=== PATIENT | female | born 1955 | race Caucasian/White ===

== ENCOUNTER 2017-02-27 16:44 | Emergency (ER) | payer MEDICARE ==
--- NOTE | ~2017-02-27 | CR151 ---
[facility] A Service of [facility] & [facility] RADIOLOGY TEXT RESULTS PATIENT: ANTONI BLACK LOCATION: [facility] : 51 UNIT #: [id number] AGE: [address]: Yao Verdin MD SEX: F ORDER DR: [id number] [facility] [address] [place], [place] [address] [id number] E MR#: [id number] Acc #: [id number] NAME: ANTONI BLACK : 1955 SEX: F STUDY DATE/TIME: 02/27/2017 18:34 UNIT: [facility] ROOM: STUDY DESCRIPTION: CR Hip Min 2 Views Rt Attending Physician: Yao Verdin M.D. Ordering Physician: Jeremy Hyde D.O. Primary Care Physician: Dontae Yoder M.D. MEDICAL IMAGING REPORT This report is preliminary unless electronic signature is present EXAM Right hip, 02/27/2017 HISTORY 61-year-old female with right hip pain beginning this morning. No specific injury. COMPARISON None. FINDINGS 2 views of the right hip demonstrate no acute fracture or dislocation. Bony pelvis intact. Sacrum and SI joints intact. Joint spaces are grossly maintained in both hips. Soft tissues are unremarkable. IMPRESSION Unremarkable right hip. Dictated by... Terry Clancy M.D. THIS IS AN ELECTRONICALLY VERIFIED REPORT Terry Clancy M.D. at 02/28/2017 9:06 AM YI/kay TD: 02/27/2017 23:06 JOB #: [id number] MEDICAL IMAGING REPORT Page 1 of 1 COPY
[2017-02-27 18:23] LABS: URINE SOURCE CLEAN CATCH
[2017-02-27 18:28] LABS: URINE APPEARANCE CLEAR; URINE BILIRUBIN NEG (NEG); URINE BLOOD 2+ (NEG); URINE COLOR YELLOW; URINE GLUCOSE NEG (NEG); URINE KETONE NEG (NEG); URINE LEUKOCYTE ESTERASE NEG (NEG); URINE NITRATE NEG (NEG); URINE PH 5.5 (5-8); URINE PROTEIN NEG (NEG); URINE SPECIFIC GRAVITY 1.012 (1.003-1.035); URINE UROBILINOGEN 0.2 MG/DL (NEG)
[2017-02-27 18:30] LABS: URINE BACTERIA AUWI NEG (NEGATIVE); URINE SQUAMOUS EPITHELIAL CELL NONE SEEN /[HPF]; UWBCS1 AUWI 0-2 (0-5)
[2017-02-27 18:39] LABS: CULTURE INDICATED? NO
[2017-02-27 18:42] LABS: AMPHETAMINE NEG (NEG); BARBITURATES NEG (NEG); BENZODIAZEPINES NEG (NEG); COCAINE NEG (NEG); MARIJUANA NEG (NEG); OPIATES NEG (NEG); TRICYCLIC ANTIDEPRESSANTS NEG (NEG); U METHADONE NEG (NEG)
[2017-02-27 18:49] LABS: BASOPHIL# 0.1 X10e3 (0-0.3); BASOPHIL% 0.8 % (0-2.5); EOSINOPHIL# 0.2 X10e3 (0-0.7); EOSINOPHIL% 2.8 % (0.0-7.0); HEMATOCRIT 36.3 % (35.0-45.0); HEMOGLOBIN 12.2 gm/dL (12.0-16.0); LYMPHOCYTE# 2.4 X10e3 (1.0-3.5); LYMPHOCYTE% 37.6 % (17.0-45.0); MEAN CELL VOLUME 104.5 FL (83-96); MEAN CORPUSCULAR HEMOGLOBIN 34.9 PG (28-34); MEAN CORPUSCULAR HGB CONC 33.5 g/dL (30-36); MEAN PLATELET VOLUME 6.6 FL (6.5-11.5); MONOCYTE# 0.5 X10e3 (0-1.0); MONOCYTE% 8.4 % (3.0-12.0); NEUTROPHIL# 3.2 X10e3 (1.5-7.1); NEUTROPHIL% 50.4 % (40-75); PLATELET COUNT 272 X10e3 (140-420); RED BLOOD COUNT 3.48 X10e (3.90-5.30); RED CELL DISTRIBUTION WIDTH 13.2 % (11.0-15.5); WHITE BLOOD COUNT 6.3 X10e3 (4.0-10.5)
[2017-02-27 18:54] LABS: DIFF IND NO
[2017-02-27 19:13] LABS: ALBUMIN SERUM 4.1 g/dL (3.5-5.0); BILIRUBIN,TOTAL 0.4 mg/dL (0.2-2.0); BUN/CREATININE RATIO 12.5; CALCIUM SERUM 8.9 mg/dL (8.4-10.2); CREATININE SERUM 0.8 mg/dL (0.6-1.4); GLOM FILT RATE Estimated 78.5 mL/min (>60); POTASSIUM 3.7 mmol/L (3.5-5.1); PROTEIN TOTAL SERUM 6.6 g/dL (6.0-8.3)
[2017-02-27 19:16] LABS: POC - TROPONIN <0.05 ng/mL (<=0.05)
== END 2017-02-27 20:00 | disposition home or self-care (01) ==
LOC: CED 16:44
PROVIDERS: Emergency Medicine
DX: M25.551 Pain in right hip (principal); I10 Essential (primary) hypertension; R56.9 Unspecified convulsions; F17.200 Nicotine dependence, unspecified, uncomplicated; Z79.899 Other long term (current) drug therapy; Z88.0 Allergy status to penicillin
CPT/HCPCS: 36415; 73502; 80053; 80307; 81003; 82553; 84484; 85025; 96374; 96375; 99284; J2270; J2405